=== PATIENT | female | born 2000 | race Caucasian/White ===

== ENCOUNTER 2024-03-22 08:35 | Emergency (ER) | payer OTHER ==
[2024-03-22 08:58] VITALS: BP 118/81; PULSE 83; RESP 16; TEMP 98.4; BMI 64.4
== END 2024-03-22 10:46 | disposition home or self-care (01) ==
LOC: JER 08:35
DX: S93.401A Sprain of unspecified ligament of right ankle, initial encounter (principal); X50.1XXA Overexertion from prolonged static or awkward postures, initial encounter; Y93.02 Activity, running
CPT/HCPCS: 73610-TC-RT-FY; 73630-TC-RT-FY; 99283-25